=== PATIENT | male | born 1965 | race Caucasian/White ===

== ENCOUNTER 2017-02-12 16:53 | Outpatient (CLI) | payer OTHER ==
--- NOTE | 2017-02-12 17:36 | DIAGNOSTIC IMAGING REPORT ---
PROCEDURE: XR LUMBAR SPINE 2 OR 3 VIEWS INDICATION: BACK PAIN TECHNIQUE: Three views. COMPARISON: None. FINDINGS: Moderate disc space narrowing at L3-4 with mild to moderate degenerative changes of the lower lumbar facet joints. The rest of the osseous structures and disc spaces are normal. No evidence of an acute process or fracture. IMPRESSION: 1. Moderate degenerative changes of the lumbar spine.
--- NOTE | 2017-02-12 17:39 | DIAGNOSTIC IMAGING REPORT ---
PROCEDURE: XR FINGER - LEFT (thumb) INDICATION: Left thumb pain. TECHNIQUE: Three views. COMPARISON: Comparison is made radiographs of the left hand on 07/13/2014. FINDINGS: There has been mild progression of moderate arthritic changes of the left first metacarpal/greater multangular joint with mild radial subluxation (suggests ligamentous laxity). The rest of the osseous structures and joint spaces are normal. IMPRESSION: 1. Progression of moderate degenerative changes of the left first metacarpal/greater multangular joint with ligamentous laxity.
== END 2017-02-12 23:00 ==
LOC: XR SRH 16:53
DX: M47.816 Spondylosis without myelopathy or radiculopathy, lumbar region (principal); M18.12 Unilateral primary osteoarthritis of first carpometacarpal joint, left hand